=== PATIENT | female | born 1965 | race Caucasian/White ===

== ENCOUNTER → 2023-12-01 15:34 | Outpatient (REF) | payer OTHER, SELFPAY | LOC: WDC 15:34 | PROVIDERS: ATTENDING PHYSICIAN Nurse Practitioner Family; FAMILY PHYSICIAN Nurse Practitioner | DX: Z12.31 Encounter for screening mammogram for malignant neoplasm of breast (principal) | CPT/HCPCS: 77063; 77067 ==

== ENCOUNTER → 2024-12-02 16:18 | Outpatient (REF) | payer OTHER, SELFPAY | LOC: WDC 16:18 | PROVIDERS: ATTENDING PHYSICIAN Nurse Practitioner Family | DX: Z12.31 Encounter for screening mammogram for malignant neoplasm of breast (principal) | CPT/HCPCS: 77063; 77067 ==

== ENCOUNTER → 2025-05-29 14:31 | Outpatient (REF) | payer OTHER, SELFPAY | LOC: WDC 14:31 | PROVIDERS: ATTENDING PHYSICIAN Nurse Practitioner Family | DX: R92.30 Dense breasts, unspecified (principal) | CPT/HCPCS: 76641 ==